=== PATIENT | female | born 1975 | race African-American/Black ===

== ENCOUNTER 2020-01-15 06:06 | Emergency (ER) | payer BC ==
[~2020-01-15] VITALS: Ht 170.2 cm; Wt 99.5 kg
[2020-01-15] MEDS ORDERED: 0.9 % SODIUM CHLORIDE 10 ML DISP.SYRIN. IV PRN (06:15)
--- NOTE | 2020-01-15 06:34 | PHYS DOC ---
General Adult EDM: Chief Complaint: BACK PAIN OR INJURY HPI: HPI: The history was obtained from the patient. Patient is a 44-year-old female with PMH hypertension, sgz-ssribci-qtjwkleoc diabetic who presents with a chief complaint of back pain. Patient states she developed low back pain yesterday evening before she went to sleep. States it involves her entire lower back. States it radiates up into her thoracic region. She states laying still any movement seems to make the pain worse. She has not tried any medicine at home to help. 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 She is unsure whether she pulled something. She denies any nausea or vomiting. She denies any chest pain or shortness of breath. She denies any abdominal pain. She denies any syncope. She does note a history of hypertension but she states she has not taken her morning medication yet. She does note darker urine but denies any dysuria or hematuria. Denies any history of kidney stone. Denies any alcohol or drug abuse. States that she does smoke tobacco. Denies any history of pancreatitis. Does note history of tubal ligation. States that her blood pressures normally well controlled. Patient denies any urinary retention, stool incontinence, saddle anesthesia, history of IV drug use, or history of cancer. Review of Systems: Review of Systems: Constitutional: Denies fever or chills. [] Eyes: Denies change in visual acuity. [] HENT: Denies nasal congestion or sore throat. [] Respiratory: Denies cough or shortness of breath. [] Cardiovascular: Denies chest pain or edema. [] GI: Denies abdominal pain, nausea, vomiting, bloody stools or diarrhea. [] : Denies dysuria. [] Musculoskeletal: Positive for back pain Integument: Denies rash. [] Neurologic: Denies headache, focal weakness or sensory changes. [] Endocrine: Denies polyuria or polydipsia. [] Lymphatic: Denies swollen glands. [] Psychiatric: Denies depression or anxiety. [] Heart Score: Risk Factors: Risk Factors: DM, Current or recent (<one month) smoker, HTN, HLP, family history of CAD, obesity. Risk Scores: Score 0 - 3: 2.5% MACE over next 6 weeks - Discharge Home Score 4 - 6: 20.3% MACE over next 6 weeks - Admit for Clinical Observation Score 7 - 10: 72.7% MACE over next 6 weeks - Early Invasive Strategies Current Medications: Current Medications Medications (Trade) Dose Ordered Sig/[facility] Start Time Stop Time Status Last Admin Dose Admin Cyclobenzaprine HCl (Flexeril) 10 mg 1X ONCE 01/15/20 06:30 01/15/20 06:31 UNV Lidocaine (Lidoderm) 1 patch DAILY 01/15/20 09:00 UNV Sodium Chloride (Normal Saline Flush) 10 ml QSHIFT PRN 01/15/20 06:15 UNV Allergies: Allergies: Allergies Coded Allergies Type Severity Reaction Last Updated Verified No Known Drug Allergies 01/15/20 No Physical Exam: PE: Constitutional: Well developed, well nourished, no acute distress, non-toxic appearance. [] HENT: Normocephalic, atraumatic, bilateral external ears normal, oropharynx moist, no oral exudates, nose normal. [] Eyes: PERRLA, EOMI, conjunctiva normal, no discharge. [] Neck: Normal range of motion, no tenderness, supple, no stridor. [] Cardiovascular:Heart rate regular rhythm, no murmur [] Lungs & Thorax: Bilateral breath sounds clear to auscultation [] Abdomen: Bowel sounds normal, soft, no tenderness, no masses, no pulsatile masses. [] Skin: Warm, dry, no erythema, no rash. [] Back: No tenderness, no CVA tenderness. [] Extremities: No tenderness, no cyanosis, no clubbing, ROM intact, no edema. [] Neurologic: Alert and oriented X 3, normal motor function, normal sensory function, no focal deficits noted. [] Psychologic: Affect normal, judgement normal, mood normal. [] Current Patient Data: Labs: Laboratory Tests Test 01/15/20 06:13 01/15/20 06:20 01/15/20 06:35 Urine Collection Type U bag Urine Color Yellow Urine Clarity Clear Urine pH 6.5 Urine Specific [place] 1.025 Urine Protein Negative mg/dL Urine Glucose (UA) >=1000 mg/dL Urine Ketones (Stick) Negative mg/dL Urine Blood Negative Urine Nitrite Negative Urine Bilirubin Negative Urine Urobilinogen Dipstick 1.0 mg/dL Urine Leukocyte Esterase Moderate Urine RBC 3-5 /HPF Urine WBC 11-20 /HPF Urine Squamous Epithelial Cells Many /LPF Urine Bacteria Many /HPF Urine Mucus Mod /LPF Bedside Urine HCG, Qualitative Hcg negative White Blood Count 6.8 x10^3/uL Red Blood Count 4.46 x10^6/uL Hemoglobin 12.4 g/dL Hematocrit 37.6 % Mean Corpuscular Volume 84 fL Mean Corpuscular Hemoglobin 28 pg Mean Corpuscular Hemoglobin Concent 33 g/dL Red Cell Distribution Width 14.2 % Platelet Count 274 x10^3/uL Neutrophils (%) (Auto) 50 % Lymphocytes (%) (Auto) 40 % Monocytes (%) (Auto) 9 % Eosinophils (%) (Auto) 1 % Basophils (%) (Auto) 1 % Neutrophils # (Auto) 3.4 x10^3/uL Lymphocytes # (Auto) 2.7 x10^3/uL Monocytes # (Auto) 0.6 x10^3/uL Eosinophils # (Auto) 0.1 x10^3/uL Basophils # (Auto) 0.0 x10^3/uL Sodium Level 135 mmol/L Potassium Level 3.7 mmol/L Chloride Level 101 mmol/L Carbon Dioxide Level 26 mmol/L Anion Gap 8 Blood Urea Nitrogen 6 mg/dL Creatinine 0.7 mg/dL Estimated GFR (Cockcroft-Gault) 90.1 BUN/Creatinine Ratio 9 Glucose Level 261 mg/dL Calcium Level 9.0 mg/dL Total Bilirubin 0.2 mg/dL Aspartate Amino Transf (AST/SGOT) 13 U/L Alanine Aminotransferase (ALT/SGPT) 22 U/L Alkaline Phosphatase 89 U/L Total Protein 7.2 g/dL Albumin 3.1 g/dL Albumin/Globulin Ratio 0.8 Lipase 162 U/L Current Medications Medications (Trade) Dose Ordered Sig/[facility] Route PRN Reason Start Time Stop Time Status Last Admin Dose Admin Sodium Chloride 1,000 ml @ 100 mls/hr Q10H IV 01/15/20 07:00 01/15/20 16:59 01/15/20 06:43 Sodium Chloride (Normal Saline Flush) 10 ml QSHIFT PRN IV AFTER MEDS AND BLOOD DRAWS 01/15/20 06:15 Lidocaine (Lidoderm) 1 patch DAILY TD 01/15/20 07:00 01/15/20 06:44 Cyclobenzaprine HCl (Flexeril) 10 mg 1X ONCE PO 01/15/20 07:00 01/15/20 07:01 DC 01/15/20 06:44 Morphine Sulfate (Morphine Sulfate) 4 mg 1X ONCE IV 01/15/20 07:00 01/15/20 07:01 DC 01/15/20 06:44 Cefazolin Sodium (Ancef) 1 gm 1X ONCE IVP 01/15/20 07:30 01/15/20 07:31 DC Laboratory Tests Test 01/15/20 06:20 POC Urine HCG, Qualitative Hcg negative (Negative) Vital Signs: Vital Signs Date Time Temp Pulse Resp B/P (MAP) Pulse Ox O2 Delivery O2 Flow Rate FiO2 01/15/20 06:44 18 99 Room Air 01/15/20 06:16 98.3 88 16 194/88 (123) 98 Room Air 98.3 EKG: EKG: [] Radiology/Procedures: Radiology/Procedures: [] Course & Med Decision Making: Course & Med Decision Making Pertinent Labs and Imaging studies reviewed. (See chart for details) Patient is a well-appearing 44-year-old female who presents with chief complaint of lower back pain with some darker colored urine. Initial vital signs notable for elevated blood pressure. She does have a history of hypertension and has not taken her medicine this morning. Physical exam noted above. Labs are concerning for urinary tract infection versus pyelonephritis. She was given 1 g of Ancef. Her pain was treated. On repeat examination her blood pressure has improved and her symptoms have resolved. I do feel is reasonable to defer CAT s can imaging. Overall very low suspicion for aortic dissection. No back pain red flags present. I did discuss possibility of obtaining CAT scan imaging today. Patient is comfortable deferring this imaging at this time. I do feel overall this is reasonable. She will be discharged home on oral Keflex. Return precautions discussed and understood. Patient stable for discharge home. Dragon Disclaimer: Gwen Disclaimer: This electronic medical record was generated, in whole or in part, using a voice recognition dictation system. Departure Departure Disposition: 01 HOME, SELF-CARE Condition: GOOD Patient Instructions: Pyelonephritis, Adult Additional Instructions: Please return the emergency department in 2 to 3 days if your symptoms do not improve or worsen. Scripts Cephalexin (KEFLEX) 500 Mg Capsule 1 CAP PO BID for 14 Days, #28 CAP 0 Refills Prov: SARAH ORTIZ DO 01/15/20 Justicifation of Admission Dx: Justifications for Admission: Justification of Admission Dx: N/A SARAH ORTIZ DO Jan 15, 2020 06:34
[2020-01-15] MEDS ORDERED: LIDOCAINE (700MG/PATCH) PATCH. TD SCH (07:00)
[2020-01-15] MEDS ORDERED: IV NORMAL SALINE 1000ML BAG 1,000 ML IV SCH (07:00)
[2020-01-15] MEDS ORDERED: CYCLOBENZAPRINE 10 MG TABLET. PO ONE (07:00)
[2020-01-15] MEDS ORDERED: MORPHINE SULFATE 4 MG/ML VIAL. IV ONE (07:00)
[2020-01-15 07:06] LABS: BACTERIA,URINE MANY /HPF (0-FEW); BILIRUBIN,URINE NEGATIVE (NEG); CLARITY,URINE CLEAR; COLOR,URINE YELLOW; NITRITE,URINE NEGATIVE (NEG); PH,URINE 6.5 (<5.0-8.0); PROTEIN,URINE NEGATIVE (NEG-TRACE); SQUAMOUS EPITHELIAL CELL,UR MANY /LPF
[2020-01-15 07:13] LABS: CREATININE 0.7 mg/dL (0.6-1.0); GFR 90.1; POTASSIUM 3.7 mmol/L (3.5-5.1)
[2020-01-15 07:19] LABS: ALBUMIN 3.1 g/dL (3.4-5.0); ALBUMIN/GLOBULIN RATIO 0.8 (1.0-1.7); TOTAL BILIRUBIN 0.2 mg/dL (0.2-1.0); TOTAL PROTEIN 7.2 g/dL (6.4-8.2)
[2020-01-15] MEDS ORDERED: ceFAZolin SODIUM IV Push 1 GM VIAL. IVP ONE (07:30)
[2020-01-15 07:39] LABS: BASO % 1 % (0-3); EOS # 0.1 x10^3/uL (0.0-0.7); EOS % 1 % (0-3); HEMATOCRIT 37.6 % (36.0-47.0); HEMOGLOBIN 12.4 g/dL (12.0-15.5); LYMPH # 2.7 x10^3/uL (1.0-4.8); LYMPH % 40 % (24-48); MEAN CORPUSCULAR HEMOGLOBIN 28 pg (25-35); MEAN CORPUSCULAR HGB CONC 33 g/dL (31-37); MEAN CORPUSCULAR VOLUME 84 fL (79-100); MONO # 0.6 x10^3/uL (0.0-1.1); MONO % 9 % (0-9); NEUT # 3.4 x10^3/uL (1.8-7.7); NEUT % 50 % (31-73); PLATELET COUNT 274 x10^3/uL (140-400); RED BLOOD COUNT 4.46 x10^6/uL (3.50-5.40); RED CELL DISTRIBUTION WIDTH 14.2 % (11.5-14.5); WHITE BLOOD COUNT 6.8 x10^3/uL (4.0-11.0)
[2020-01-15] MEDS ORDERED: CEPH-264 PO (08:08)
[2020-01-15 08:22] VITALS: BP 170/79
== END 2020-01-15 08:51 | disposition home or self-care (01) ==
LOC: ER 06:06
DX: M54.5 Low back pain (principal); I10 Essential (primary) hypertension; E11.9 Type 2 diabetes mellitus without complications
CPT/HCPCS: 36415; 80053; 81001; 81025; 83690; 85025; 87086; 96361; 96374; 96375; 99285; J0690; J2270; J7030

== ENCOUNTER 2020-02-27 00:45 | Emergency (ER) | payer BC ==
[~2020-02-27] VITALS: Ht 170.2 cm; Wt 100.0 kg
[~2020-02-27 00:45] MED LIST: CEPH-264 PO
[2020-02-27] MEDS ORDERED: HYDR-3164 PO (02:05)
--- NOTE | 2020-02-27 02:06 | PHYS DOC ---
Past Medical History Past Medical History: Diabetes-Type II, Hypertension Past Surgical History: Tubal ligation Smoking Status: Current Every Day Smoker Alcohol Use: None General Adult EDM: Chief Complaint: UPPER EXTREMITY PAIN HPI: HPI: 44-year-old female with history of hypertension, diabetes mellitus, who presents for evaluation of proximal left upper extremity pain at site of recent lipoma removal at [facility] by Dr. Kohler of [facility]. The pain is just distal to the surgical incision around the antecubital fossa. No swelling, fever, chills, nausea or vomiting. No distal upper extremity weakness or paresthesia. No fall or trauma. Review of Systems: Review of Systems: Gen: No fever, chills. CV: No CP, palpitations. Resp. No SOB, cough. GI: No abd pain, N/V. Neuro: No HOLCOMB, dizziness, weakness or paresthesia. MSK: Reports proximal left upper extremity pain. Skin: Reports surgical scar from recent lipoma excision. Heart Score: Risk Factors: Risk Factors: DM, Current or recent (<one month) smoker, HTN, HLP, family history of CAD, obesity. Risk Scores: Score 0 - 3: 2.5% MACE over next 6 weeks - Discharge Home Score 4 - 6: 20.3% MACE over next 6 weeks - Admit for Clinical Observation Score 7 - 10: 72.7% MACE over next 6 weeks - Early Invasive Strategies Allergies: Allergies: Allergies Coded Allergies Type Severity Reaction Last Updated Verified Penicillins Allergy Unknown Rash 01/15/20 Yes Physical Exam: PE: Gen: NAD. Well nourished. Head: NC/AT. Eyes: No scleral icterus. No conjunctival injection. ENT: MMM. Neck: Supple. NT. CV: RRR Peripheral pulses intact. Resp: CTAB. MSK: No peripheral cyanosis. No edema. Approximately 5 cm linear surgical scar at the left upper extremity just proximal to the antecubital fossa, without surrounding cellulitic changes, fluctuance, or induration. Distal left upper extremity is warm and well perfused with otherwise intact active range of motion of the isolated joints. Neuro: Awake and alert. Skin. Warm. Dry. Psych: Appropriate mood & affect. EKG: EKG: [] Radiology/Procedures: Radiology/Procedures: [] Course & Med Decision Making: Course & Med Decision Making Pertinent Labs and Imaging studies reviewed. (See chart for details) In summary, 44-year-old female who presents for evaluation of postoperative pain in the setting of recent lipoma removal of the left upper extremity just proximal to the antecubital fossa. No surrounding infectious changes. Her pain is not necessarily described as neuropathic pain. She remains well-appearing and nontoxic. She will discharged home with outpatient follow-up as scheduled for Tuesday. Return precautions given. Gwen Disclaimer: Gwen Disclaimer: This electronic medical record was generated, in whole or in part, using a voice recognition dictation system. Departure Departure Impression: Primary Impression: Postoperative pain of extremity Disposition: HOME, SELF-CARE Condition: STABLE Referrals: UNKNOWN PCP NAME (PCP) Patient Instructions: Pain Relief Preoperatively and Postoperatively Scripts Hydrocodone/Apap 5-325 (NORCO 5-325 TABLET) 1 Each Tablet 1 TAB PO PRN Q8HRS PRN for PAIN, #10 TAB 0 Refills Prov: JEVON PINEDA DO 02/27/20 Justicifation of Admission Dx: Justifications for Admission: Justification of Admission Dx: N/A JEVON PINEDA DO Feb 27, 2020 02:05
[2020-02-27] MEDS ORDERED: HYDROcodone/APAP 5/325MG 1 TAB TABLET PO ONE (02:30)
[2020-02-27 02:32] VITALS: BP 168/98
== END 2020-02-27 02:36 | disposition home or self-care (01) ==
LOC: ER 00:45
DX: G89.18 Other acute postprocedural pain (principal); M79.602 Pain in left arm; E11.9 Type 2 diabetes mellitus without complications; I10 Essential (primary) hypertension; F17.200 Nicotine dependence, unspecified, uncomplicated; Z98.51 Tubal ligation status; Z88.0 Allergy status to penicillin
CPT/HCPCS: 99283

== ENCOUNTER 2020-08-05 18:24 | Emergency (ER) | payer BC ==
[~2020-08-05] VITALS: Ht 170.2 cm; Wt 102.0 kg
[~2020-08-05 18:24] MED LIST changes: +HYDR-3164 PO
[2020-08-05] MEDS ORDERED: fentaNYL PF VIAL 100 MCG/2 ML VIAL IVP ONE (19:45)
[2020-08-05] MEDS ORDERED: ONDANSETRON PF 4 MG/2 ML VIAL. IVP ONE (19:45)
[2020-08-05] MEDS ORDERED: IV NORMAL SALINE 1000ML BAG 1,000 ML IV SCH (19:45)
--- NOTE | 2020-08-05 19:58 | PHYS DOC ---
Past Medical History Past Medical History: Diabetes-Type II, Hypertension Past Surgical History: Tubal ligation Smoking Status: Current Every Day Smoker Alcohol Use: None General Adult EDM: Chief Complaint: CONTISPATION HPI: HPI: Patient is a 45 year old female who presents with 7 days without a bowel movement. She states she feels very full and very bloated. She states it hurts to walk. She states she has been trying mag citrate, milk of mag, chocolate milk, ice cream, prune juice. She states she is very nauseated now but has not vomited. She has a history of diabetes and hypertension. She rates her discomfort a 9 out of 10. Patient denies chest pain, shortness of breath, fever, vomiting, diarrhea, headache, dizziness, urinary symptoms. Review of Systems: Review of Systems: Constitutional: Denies fever or chills. [] Eyes: Denies change in visual acuity. [] HENT: Denies nasal congestion or sore throat. [] Respiratory: Denies cough or shortness of breath. [] Cardiovascular: Denies chest pain or edema. [] GI: + abdominal pain, +nausea, + constipation, denies vomiting, bloody stools or diarrhea. [] : Denies dysuria. [] Musculoskeletal: Denies back pain or joint pain. [] Integument: Denies rash. [] Neurologic: Denies headache, focal weakness or sensory changes. [] Endocrine: Denies polyuria or polydipsia. [] Lymphatic: Denies swollen glands. [] Psychiatric: Denies depression or anxiety. [] Heart Score: Risk Factors: Risk Factors: DM, Current or recent (<one month) smoker, HTN, HLP, family history of CAD, obesity. Risk Scores: Score 0 - 3: 2.5% MACE over next 6 weeks - Discharge Home Score 4 - 6: 20.3% MACE over next 6 weeks - Admit for Clinical Observation Score 7 - 10: 72.7% MACE over next 6 weeks - Early Invasive Strategies Current Medications: Current Medications Medications (Trade) Dose Ordered Sig/[facility] Start Time Stop Time Status Last Admin Dose Admin Fentanyl Citrate (Fentanyl 2ml Vial) 25 mcg 1X ONCE 08/05/20 19:45 08/05/20 19:46 DC Ondansetron HCl (Zofran) 4 mg 1X ONCE 2/23/21 19:45 08/05/20 19:46 DC Sodium Chloride 1,000 ml @ 1,000 mls/hr Q1H 08/05/20 19:45 08/05/20 20:44 Allergies: Allergies: Allergies Coded Allergies Type Severity Reaction Last Updated Verified Penicillins Allergy Intermediate Rash 02/27/20 Yes Physical Exam: PE: Constitutional: Well developed, well nourished, no acute distress, non-toxic appearance. [] HENT: Normocephalic, atraumatic, bilateral external ears normal, oropharynx moist, no oral exudates, nose normal. [] Eyes: PERRLA, EOMI, conjunctiva normal, no discharge. [] Neck: Normal range of motion, no tenderness, supple, no stridor. [] Cardiovascular:Heart rate regular rhythm, no murmur [] Lungs & Thorax: Bilateral breath sounds clear to auscultation [] Abdomen: Bowel sounds normal, soft, generalized tenderness, distended, no masses, no pulsatile masses. [] Skin: Warm, dry, no erythema, no rash. [] Back: No tenderness, no CVA tenderness. [] Extremities: No tenderness, no cyanosis, no clubbing, ROM intact, no edema. [] Neurologic: Alert and oriented X 3, normal motor function, normal sensory function, no focal deficits noted. [] Psychologic: Affect normal, judgement normal, mood normal. [] Current Patient Data: Vital Signs: Vital Signs Date Time Temp Pulse Resp B/P (MAP) Pulse Ox O2 Delivery O2 Flow Rate FiO2 08/05/20 19:00 97.0 96 26 157/85 (109) 96 Room Air 97.0 EKG: EKG: [] Radiology/Procedures: Radiology/Procedures: [] Impression: [facility] [address] [place], [place] [id number] IMAGING REPORT Signed PATIENT: AVEL GOMEZ ACCOUNT: [id number] : 1975 LOCATION: ER AGE: 45 SEX: F EXAM STATUS: REG ER ORD. PHYSICIAN: KASEY NATION APRN REASON: abd pain, nausea, constipation x 7 days PROCEDURE: CT ABD PELV W/ IV CONTRST ONLY Exam: CT of abdomen and pelvis with contrast INDICATION: Abdominal pain, nausea, constipation TECHNIQUE: Sequential axial images through the abdomen and pelvis obtained without IV contrast. Sagittal and coronal reformatted images were reconstructed from the axial data and reviewed. Comparisons: None FINDINGS: Heart size is normal. No pericardial effusion. Strandy opacities at the dependent portion lungs likely representing atelectasis.. Liver, spleen, pancreas, gallbladder and adrenals are unremarkable. No perinephric inflammation or hydronephrosis. No renal or ureteral calculi are identified. Bladder is distended and not well evaluated. Uterus not enlarged. No abnormal adnexal mass. Large amount of stool is noted in the distal sigmoid colon. Remainder of the colon is predominantly fluid-filled. Small bowel is unremarkable. Abdominal aorta has a normal course and caliber. Abdominal vasculature is patent. No enlarged abdominal lymph nodes are identified. No suspicious osseous lesions or acute fractures. IMPRESSION: Moderate amount stool noted at the rectum/sigmoid colon, correlate for constipation. More proximal colon is predominantly fluid-filled Exposure: One or more of the following in the visualized dose reduction techn iques were utilized for this examination: 1. Automated exposure control 2. Adjustment of the MA and/or KV according to patient size 3. Use of iterative of reconstructive technique Electronically signed by: Larisa Gold MD (08/05/2020 10:22 PM) [facility] DICTATED and SIGNED BY: LARISA GOLD MD DATE: 08/05/20 [id number] 0 Course & Med Decision Making: Course & Med Decision Making Pertinent Labs and Imaging studies reviewed. (See chart for details) See HPI. Alert and oriented x4. Ambulatory with steady gait. Abdomen is distended but soft and tender generalized. Speaks in full clear sentences. Skin pink warm and dry. CT abdomen pelvis shows constipation. Upon going back and speaking with the patient, patient has been having many bowel movements here in the ED. She states that she had hard stool come out and now hold onto loose stool. Patient states she is feeling better. Patient will be discharged home and follow-up with her primary care provider. [] Gwen Disclaimer: Gwen Disclaimer: This electronic medical record was generated, in whole or in part, using a voice recognition dictation system. Departure Departure Impression: Primary Impression: Constipation Qualified Codes: K59.00 - Constipation, unspecified Disposition: 01 DC HOME SELF CARE/HOMELESS Condition: STABLE Referrals: UNKNOWN PCP NAME (PCP) Patient Instructions: Constipation, Adult Additional Instructions: Drink plenty of fluids. Try to eat a high-fiber diet. Follow-up with your primary care if needed. If you ever get so constipated that you begin to vomit you return to the emergency room. KASEY NATION APRN Aug 05, 2020 19:58
[2020-08-05 20:04] LABS: BASO % 0 % (0-3); EOS % 0 % (0-3); HEMATOCRIT 42.9 % (36.0-47.0); HEMOGLOBIN 14.4 g/dL (12.0-15.5); LYMPH # 1.4 x10^3/uL (1.0-4.8); LYMPH % 21 % (24-48); MEAN CORPUSCULAR HEMOGLOBIN 29 pg (25-35); MEAN CORPUSCULAR HGB CONC 34 g/dL (31-37); MEAN CORPUSCULAR VOLUME 85 fL (79-100); MONO # 0.5 x10^3/uL (0.0-1.1); MONO % 8 % (0-9); NEUT # 4.7 x10^3/uL (1.8-7.7); NEUT % 71 % (31-73); PLATELET COUNT 246 x10^3/uL (140-400); RED BLOOD COUNT 5.05 x10^6/uL (3.50-5.40); RED CELL DISTRIBUTION WIDTH 13.8 % (11.5-14.5); WHITE BLOOD COUNT 6.6 x10^3/uL (4.0-11.0)
[2020-08-05] MEDS ORDERED: IOHEXOL 300 MG/ML 100ML VIAL. IV ONE (20:15)
[2020-08-05] MEDS ORDERED: CONTRAST GIVEN. MC PRN (20:30)
[2020-08-05 21:37] LABS: CALCIUM 8.3 mg/dL (8.5-10.1); CREATININE 0.8 mg/dL (0.6-1.0); POTASSIUM 3.7 mmol/L (3.5-5.1)
[2020-08-05 21:43] LABS: ALBUMIN 3.3 g/dL (3.4-5.0); ALBUMIN/GLOBULIN RATIO 0.8 (1.0-1.7); TOTAL BILIRUBIN 0.5 mg/dL (0.2-1.0); TOTAL PROTEIN 7.5 g/dL (6.4-8.2)
[2020-08-05 21:52] LABS: BILIRUBIN,URINE NEGATIVE (NEG); CLARITY,URINE CLEAR; COLOR,URINE YELLOW; NITRITE,URINE NEGATIVE (NEG); PH,URINE 8.5 (<5.0-8.0); PROTEIN,URINE 100 mg/dL (NEG-TRACE); UROBILINOGEN,URINE 0.2 mg/dL (0.2 mg/dL)
[2020-08-05 22:03] LABS: BACTERIA,URINE MANY /HPF (0-FEW)
--- NOTE | 2020-08-05 22:25 | RAD ---
Exam: CT of abdomen and pelvis with contrast INDICATION: Abdominal pain, nausea, constipation TECHNIQUE: Sequential axial images through the abdomen and pelvis obtained without IV contrast. Sagit john and coronal reformatted images were reconstructed from the axial data and reviewed. Comparisons: None FINDINGS: Heart size is normal. No pericardial effusion. Strandy opacities at the dependent portion lungs likel y representing atelectasis.. Liver, spleen, pancreas, gallbladder and adrenals are unremarkable. No perinephric inflammation or hydronephrosis. No renal or ureteral calculi are identified. Bladder is distended and not well evaluated. Uterus not enlarged. No abnormal adnexal mass. Large amount of stool is noted in the distal sigmoid colon. Remainder of the colon is predominantly f luid-filled. Small bowel is unremarkable. Abdominal aorta has a normal course and caliber. Abdominal vasculature is patent. No enlarged abdominal lymph nodes are identified. No suspicious osseous lesions or acute fractures. IMPRESSION: Moderate amount stool noted at the rectum/sigmoid colon, correlate for constipation. More proximal co puneet is predominantly fluid-filled Exposure: One or more of the following in the visualized dose reduction techniques were utilized for this examination: 1. Automated exposure control 2. Adjustment of the MA and/or KV according to patient size 3. Use of iterative of reconstructive technique Electronically signed by: Larisa Carbajal MD (08/05/2020 10:22 PM) [facility]
[2020-08-05] MEDS ORDERED: DOCUSATE SODIUM 283 MG/5 ML ENEMA. PR ONE (22:30)
[2020-08-05 23:00] VITALS: BP 162/94
== END 2020-08-05 23:25 | disposition home or self-care (01) ==
LOC: ER 18:24
DX: K59.00 Constipation, unspecified (principal); R14.0 Abdominal distension (gaseous); R11.0 Nausea; E11.9 Type 2 diabetes mellitus without complications; I10 Essential (primary) hypertension; F17.200 Nicotine dependence, unspecified, uncomplicated; Z98.51 Tubal ligation status; Z88.0 Allergy status to penicillin
CPT/HCPCS: 36415; 74177; 80053; 81001; 82010; 83690; 85025; 87086; 96361; 96374; 96375; 99285; J2405; J3010; J7030; Q9967

== ENCOUNTER 2020-08-11 11:49 | Emergency (ER) | payer SELFPAY ==
[~2020-08-11] VITALS: Ht 170.2 cm; Wt 100.0 kg
[2020-08-11 12:45] VITALS: BP 166/86
[2020-08-11] MEDS ORDERED: methylPREDNISolone SOD SUCC PF 125 MG/2 ML VIAL. IM ONE (13:00)
[2020-08-11] MEDS ORDERED: hydrOXYzine 25 MG TABLET PO ONE (13:00)
[2020-08-11] MEDS ORDERED: FAMOTIDINE 20 MG TABLET. PO ONE (13:00)
--- NOTE | 2020-08-11 13:04 | PHYS DOC ---
Past Medical History Past Medical History: Diabetes-Type II, Hypertension Past Surgical History: Tubal ligation Smoking Status: Current Every Day Smoker Alcohol Use: None General Adult EDM: Chief Complaint: ALLERGIC REACTION HPI: HPI: Patient is a 45 year old female with a history of hypertension, diabetes type 2, who presents to the ED today complaining of a pruritic rash that began yesterday after washing her bed sheets with a new bleach and sleeping on the sheets. She states she took a Benadryl this morning with no relief. Denies any difficulty breathing, swallowing, throat or tongue swelling. Review of Systems: Review of Systems: Constitutional: Denies fever or chills. [] Eyes: Denies change in visual acuity. [] HENT: Denies nasal congestion or sore throat. [] Respiratory: Denies cough or shortness of breath. [] Cardiovascular: Denies chest pain or edema. [] GI: Denies abdominal pain, nausea, vomiting, bloody stools or diarrhea. [] : Denies dysuria. [] Musculoskeletal: Denies back pain or joint pain. [] Integument: Reports a pruritic rash Neurologic: Denies headache, focal weakness or sensory changes. [] Psychiatric: Denies depression or anxiety. [] Heart Score: Risk Factors: Risk Factors: DM, Current or recent (<one month) smoker, HTN, HLP, family history of CAD, obesity. Risk Scores: Score 0 - 3: 2.5% MACE over next 6 weeks - Discharge Home Score 4 - 6: 20.3% MACE over next 6 weeks - Admit for Clinical Observation Score 7 - 10: 72.7% MACE over next 6 weeks - Early Invasive Strategies Current Medications: Current Medications Medications (Trade) Dose Ordered Sig/Edita Start Time Stop Time Status Last Admin Dose Admin Famotidine (Pepcid) 20 mg 1X ONCE 08/11/20 13:00 08/11/20 13:01 DC Hydroxyzine HCl (Atarax) 25 mg 1X ONCE 08/11/20 13:00 08/11/20 13:01 DC Methylprednisolone Sodium Succinate (SOLU-Medrol 125MG VIAL) 125 mg 1X ONCE 08/11/20 13:00 08/11/20 13:01 DC Allergies: Allergies: Allergies Coded Allergies Type Severity Reaction Last Updated Verified Penicillins Allergy Intermediate Rash 02/27/20 Yes Physical Exam: PE: Constitutional: Well developed, well nourished, no acute distress, non-toxic appearance. [] HENT: Normocephalic, atraumatic, bilateral external ears normal, oropharynx moist, no oral exudates, nose normal. Airways open, no throat or tongue swelling Eyes: PERRLA, EOMI, conjunctiva normal, no discharge. [] Neck: Normal range of motion, no tenderness, supple, no stridor. [] Cardiovascular:Heart rate regular rhythm, no murmur [] Lungs & Thorax: Bilateral breath sounds clear to auscultation [] Abdomen: Bowel sounds normal, soft, no tenderness, no masses, no pulsatile masses. [] Skin: Warm, dry, moderate amount of erythematous papular rash on patient's face, upper torso. Back: No tenderness, no CVA tenderness. [] Extremities: No tenderness, no cyanosis, no clubbing, ROM intact, no edema. [] Neurologic: Alert and oriented X 3, normal motor function, normal sensory function, no focal deficits noted. [] Psychologic: Affect normal, judgement normal, mood normal. [] Current Patient Data: Vital Signs: Vital Signs Date Time Temp Pulse Resp B/P (MAP) Pulse Ox O2 Delivery O2 Flow Rate FiO2 08/11/20 12:45 98.4 93 16 166/86 (112) 99 98.4 EKG: EKG: [] Radiology/Procedures: Radiology/Procedures: [] Course & Med Decision Making: Course & Med Decision Making Pertinent Labs and Imaging studies reviewed. (See chart for details) This is a 45-year-old female patient presenting to the ED today with contact dermatitis from using new bleach to wash her white sheets and sleeping on the sheets. Patient has no anaphylactic reaction symptoms. She was given Solu- Medrol, hydroxyzine and Pepcid in the ED. She took prednisone at home. Discharged with prednisone Pepcid and hydroxyzine. Follow-up with her PCP. Discussed the need not to use this new bleach. Discussed the need to wash all her sheets with her old laundry detergent. Gwen Disclaimer: Gwen Disclaimer: This electronic medical record was generated, in whole or in part, using a voice recognition dictation system. Departure Departure Impression: Primary Impression: Contact dermatitis due to soap Disposition: 01 DC HOME SELF CARE/HOMELESS Condition: STABLE Referrals: NO PCP (PCP) KAMI GATES MD follow up in 1-2 weeks Patient Instructions: Contact Dermatitis, Jgan-of-Ynug Additional Instructions: You were evaluated in the emergency room for rash from using bleach. Please do not use this bleach anymore. Please wash all the clothes/sheets you used this bleach with, with your previous laundry detergent. Please take the prescribed medications as ordered, come back to the ED at any point symptoms worsen. Scripts Hydroxyzine Hcl (HYDROXYZINE HCL) 25 Mg Tablet 1 TAB PO TID, #90 TAB Prov: TRUNG FRASER APRN 08/11/20 Famotidine (FAMOTIDINE) 20 Mg Tablet 20 MG PO DAILY, #7 TAB Prov: TRUNG FRASER APRN 08/11/20 Prednisone (PREDNISONE) 50 Mg Tablet 1 TAB PO DAILY, #5 TAB Prov: TRUNG FRASER APRN 08/11/20 TRUNG FRASER APRN Aug 11, 2020 13:04
[2020-08-11] MEDS ORDERED: FAMO20TA5 PO (13:10)
[2020-08-11] MEDS ORDERED: HYDR25TA PO (13:10)
[2020-08-11] MEDS ORDERED: PRED50TA PO (13:10)
[2020-08-12] MEDS ORDERED: PRED20TA PO ×2 (04:25→04:32)
== END 2020-08-11 13:18 | disposition home or self-care (01) ==
LOC: ER 11:49
DX: L23.2 Allergic contact dermatitis due to cosmetics (principal); I10 Essential (primary) hypertension; E11.9 Type 2 diabetes mellitus without complications; F17.200 Nicotine dependence, unspecified, uncomplicated; Z98.51 Tubal ligation status; Z88.0 Allergy status to penicillin
CPT/HCPCS: 96372; 99283; J2930

== ENCOUNTER 2020-08-12 03:59 | Emergency (ER) | payer SELFPAY ==
[~2020-08-12] VITALS: Ht 170.2 cm; Wt 101.6 kg
[~2020-08-12 03:59] MED LIST changes: +FAMO20TA5 PO; +HYDR25TA PO; +PRED50TA PO
[2020-08-12 04:05] VITALS: BP 176/104
[2020-08-12] MEDS ORDERED: PRED20TA PO ×2 (04:25→04:32)
--- NOTE | 2020-08-12 04:25 | PHYS DOC ---
Past Medical History Past Medical History: Diabetes-Type II, Hypertension Past Surgical History: Tubal ligation Smoking Status: Current Every Day Smoker Additional Information: 0.25ppd Alcohol Use: None General Adult EDM: Chief Complaint: SKIN RASH/ABSCESS HPI: HPI: Patient is a 45 year old female presents for reevaluation of rash. Patient was seen yesterday for a rash that she believes is due to laundry detergent bleach. She feels that she did not dilute the bleach and it was too concentrated. Patient has itching along her face and upper torso. Patient was seen yesterday prescribed Atarax Pepcid and steroids. Patient states she has been taking medicines as prescribed and she has had no relief. Patient also states she is use [id number] hydrocortisone with no relief. Patient is requesting Benadryl shot. Review of Systems: Review of Systems: Constitutional: Denies fever or chills. [] Eyes: Denies change in visual acuity. [] HENT: Denies nasal congestion or sore throat. [] Respiratory: Denies cough or shortness of breath. [] Cardiovascular: Denies chest pain or edema. [] GI: Denies abdominal pain, nausea, vomiting, bloody stools or diarrhea. [] : Denies dysuria. [] Musculoskeletal: Denies back pain or joint pain. [] Integument: Positive rash positive itch Neurologic: Denies headache, focal weakness or sensory changes. [] Endocrine: Denies polyuria or polydipsia. [] Lymphatic: Denies swollen glands. [] Psychiatric: Denies depression or anxiety. [] Heart Score: Risk Factors: Risk Factors: DM, Current or recent (<one month) smoker, HTN, HLP, family history of CAD, obesity. Risk Scores: Score 0 - 3: 2.5% MACE over next 6 weeks - Discharge Home Score 4 - 6: 20.3% MACE over next 6 weeks - Admit for Clinical Observation Score 7 - 10: 72.7% MACE over next 6 weeks - Early Invasive Strategies Allergies: Allergies: Allergies Coded Allergies Type Severity Reaction Last Updated Verified Penicillins Allergy Intermediate Rash 02/27/20 Yes Physical Exam: PE: Constitutional: Well developed, well nourished, no acute distress, non-toxic appearance. [] HENT: Normocephalic, atraumatic, bilateral external ears normal, oropharynx moist, no oral exudates, nose normal. [] Eyes: PERRLA, EOMI, conjunctiva normal, no discharge. [] Neck: Normal range of motion, no tenderness, supple, no stridor. [] Cardiovascular:Heart rate regular rhythm, no murmur [] Lungs & Thorax: Bilateral breath sounds clear to auscultation [] Abdomen: Bowel sounds normal, soft, no tenderness, no masses, no pulsatile masses. [] Skin: Warm, dry, no erythema, no rash. [Rash upper torso back facial] Back: No tenderness, no CVA tenderness. [] Extremities: No tenderness, no cyanosis, no clubbing, ROM intact, no edema. [] Neurologic: Alert and oriented X 3, normal motor function, normal sensory function, no focal deficits noted. [] Psychologic: Affect normal, judgement normal, mood normal. [] Current Patient Data: Vital Signs: Vital Signs Date Time Temp Pulse Resp B/P (MAP) Pulse Ox O2 Delivery O2 Flow Rate FiO2 08/12/20 04:05 98.3 119 20 176/104 (128) 98 Room Air 98.3 EKG: EKG: [] Radiology/Procedures: Radiology/Procedures: [] Course & Med Decision Making: Course & Med Decision Making Pertinent Labs and Imaging studies reviewed. (See chart for details) [] Dragon Disclaimer: Dragon Disclaimer: This electronic medical record was generated, in whole or in part, using a voice recognition dictation system. Departure Departure Impression: Primary Impression: Allergic reaction Additional Impression: Rash Disposition: 01 DC HOME SELF CARE/HOMELESS Condition: STABLE Referrals: NO PCP (PCP) Patient Instructions: Contact Dermatitis Scripts Prednisone (PREDNISONE) 20 Mg Tablet 1 TAB PO UD for 12 Days, #15 TAB Take 2 tabs days 1,2,3 1.5 tabs days 3,4,5 1 tab days 6,7,8 0.5 tab days 9,10,11 Prov: SHY DURAN DO 08/12/20 Prednisone (PREDNISONE) 20 Mg Tablet 1 TAB PO UD for 12 Days, #15 TAB Take 2 tabs days 1,2,3 1.5 tabs days 3,4,5 1 tab days 6,7,8 0.5 tab days 9,10,11 Prov: SHY DURAN DO 08/12/20 SHY DURAN DO Aug 12, 2020 04:25
[2020-08-12] MEDS ORDERED: FAMOTIDINE 20 MG TABLET. PO ONE (05:00)
[2020-08-12] MEDS ORDERED: diphenhydrAMINE 50 MG/ML VIAL IM ONE (05:00)
== END 2020-08-12 04:38 | disposition home or self-care (01) ==
LOC: ER 03:59
DX: R21 Rash and other nonspecific skin eruption (principal); T50.995A Adverse effect of other drugs, medicaments and biological substances, initial encounter; L29.9 Pruritus, unspecified; E11.9 Type 2 diabetes mellitus without complications; I10 Essential (primary) hypertension; F17.200 Nicotine dependence, unspecified, uncomplicated; Z98.51 Tubal ligation status; Z88.0 Allergy status to penicillin; Y92.89 Other specified places as the place of occurrence of the external cause
CPT/HCPCS: 96372; 99283; J1200

== ENCOUNTER 2020-08-13 22:17 | Emergency (ER) | payer SELFPAY ==
[~2020-08-13] VITALS: Ht 167.6 cm; Wt 100.0 kg
[~2020-08-13 22:17] MED LIST changes: +PRED20TA PO
--- NOTE | 2020-08-13 22:27 | PHYS DOC ---
Past Medical History Past Medical History: Diabetes-Type II, Hypertension Past Surgical History: Tubal ligation Smoking Status: Current Every Day Smoker Alcohol Use: None General Adult EDM: Chief Complaint: ITCHING HPI: HPI: Patient is a 45 year old female who presents with rash. Patient states she has had a rash with intense pruritus for the last 4 days. She says she was seen in this ED yesterday and was given a Benadryl shot and steroid taper which she is still on and says has not provided relief. She says she is in a large amount of discomfort and pain, and last took [id number] Benadryl prescription at 1600 but did not help. She says the rash covers the majority of her trunk. She thinks it may have stemmed from taking a mirtazapine pill which she received from her friend on Tuesday. Review of Systems: Review of Systems: Constitutional: Denies fever or chills Eyes: Denies redness or eye pain HENT: Denies nasal congestion or sore throat Respiratory: Denies cough or shortness of breath Cardiovascular: Denies chest pain or palpitations GI: Denies abdominal pain, nausea, or vomiting : Denies dysuria or hematuria Musculoskeletal: Denies back pain or joint pain Integument: Notes rash and pruritus diffusely across abdomen and back Neurologic: Denies headache, focal weakness or sensory changes Complete systems were reviewed and found to be within normal limits, except as documented in this note. Allergies: Allergies: Allergies Coded Allergies Type Severity Reaction Last Updated Verified Penicillins Allergy Intermediate Rash 02/27/20 Yes Physical Exam: PE: Constitutional: Well developed, well nourished, no acute distress, non-toxic appearance HENT: Normocephalic, atraumatic Eyes: PERRL, EOMI, conjunctiva normal, no discharge Neck: Normal range of motion, no tenderness, supple Lungs & Thorax: No respiratory distress, equal chest rise and fall Abdomen: Soft, no tenderness Skin: Warm, dry, no erythema, no rash. Dry skin noted on thorax worse on the ba ck Back: No tenderness, no CVA tenderness Extremities: No tenderness, ROM intact, no edema Neurologic: Alert and oriented X 3, normal motor function, normal sensory function, no focal deficits noted Psychologic: Affect normal, judgment normal EKG: EKG: [] Radiology/Procedures: Radiology/Procedures: [] Course & Med Decision Making: Course & Med Decision Making Patient is a 45-year-old female who presents with rash and pruritus. The patient is on a steroid taper which was given to her yesterday when she visited the same ED with the same complaint. She says the steroids and Benadryl have not been providing any relief thus far. Upon exam no rash or other skin ab normalities were noted save for dry skin. The patient was given a Benadryl shot, and told to continue the taper and to follow-up with a knife cutter. Patient stable for discharge with outpatient follow-up with PCP. Discussed findings and plan with patient, who acknowledges understanding and agreement. Dragon Disclaimer: Dragon Disclaimer: This electronic medical record was generated, in whole or in part, using a voice recognition dictation system. Departure Departure Impression: Primary Impression: Pruritic rash Disposition: 01 DC HOME SELF CARE/HOMELESS Condition: STABLE Referrals: NO PCP (PCP) KAMI GATES MD Patient Instructions: Pruritus, Rash, [id number] Additional Instructions: Please continue previously prescribed medications as directed. It may be of benefit to apply gentle skin moisturizer Eucerin (over the counter product). Call and make an appointment to see dermatology for further evaluation and poornima burton. MARYBETH MORENO DO Aug 13, 2020 22:27
[2020-08-13 22:30] VITALS: BP 164/82
[2020-08-13] MEDS ORDERED: diphenhydrAMINE 50 MG/ML VIAL IM ONE (22:45)
== END 2020-08-13 22:54 | disposition home or self-care (01) ==
LOC: ER 22:17
DX: R21 Rash and other nonspecific skin eruption (principal); L29.9 Pruritus, unspecified; E11.9 Type 2 diabetes mellitus without complications; I10 Essential (primary) hypertension; F17.200 Nicotine dependence, unspecified, uncomplicated; Z98.51 Tubal ligation status; Z88.0 Allergy status to penicillin
CPT/HCPCS: 96372; 99283; J1200

== ENCOUNTER 2020-11-06 21:25 | Emergency (ER) | payer BC ==
[~2020-11-06] VITALS: Ht 170.2 cm; Wt 96.4 kg
[2020-11-06 22:01] VITALS: BP 157/93
[2020-11-06] MEDS: CYCLOBENZAPRINE 10 MG TABLET. PO ONE (22:04)
[2020-11-06] MEDS: HYDROcodone/APAP 5/325MG 1 TAB TABLET PO ONE (22:04)
[2020-11-06] MEDS: NAPROXEN 500 MG TABLET PO STA (22:05)
[2020-11-06] MEDS ORDERED: HYDR12.58 PO (23:27)
[2020-11-06] MEDS ORDERED: DICL50TA2 PO (23:27)
[2020-11-06] MEDS ORDERED: CYCL10TA2 PO (23:27)
--- NOTE | 2020-11-06 23:27 | RAD ---
Exam: Lumbar spine 3 views INDICATION: Pain TECHNIQUE: Frontal, lateral views lumbar spine with spot magnification view of the lumbosacral juncti on Comparisons: None FINDINGS: Vertebral body heights and alignment are well-maintained. Mild facet arthropathy noted predominantly at the lower lumbar spine. Moderate amount of stool is noted in the colon IMPRESSION: 1. Mild spondylotic changes lumbar spine as described above. 2. Moderate amount of stool in the ascending colon. Electronically signed by: Larisa Carbajal MD (11/06/2020 11:25 PM) RUTH
--- NOTE | 2020-11-06 23:27 | PHYS DOC ---
Past Medical History Past Medical History: Diabetes-Type II, Hypertension Past Surgical History: Tubal ligation Smoking Status: Current Every Day Smoker Alcohol Use: None Drug Use: None General Adult EDM: Chief Complaint: LOWER BACK PAIN OR INJURY HPI: HPI: Patient is a 45 year old female with a history of diabetes type 2, hypertension, who presents to the ED today complaining of 10 out of 10 bilateral low back pain radiating to the left buttock into the left lower extremity, symptoms have been going on since this morning. Patient states symptoms are worse when she is ambulating or turning in certain positions. States symptoms are also worse when she raises the left upper extremity up. Denies any trauma. Denies any pain radiating to bilateral lower extremities, denies any loss of bowel/bladder function. Denies any urinary symptoms. She states she has had similar pain before. Review of Systems: Review of Systems: Constitutional: Denies fever or chills. [] Eyes: Denies change in visual acuity. [] HENT: Denies nasal congestion or sore throat. [] Respiratory: Denies cough or shortness of breath. [] Cardiovascular: Denies chest pain or edema. [] GI: Denies abdominal pain, nausea, vomiting, bloody stools or diarrhea. [] : Denies dysuria. [] Musculoskeletal: Reports low back pain radiating to the left lower extremity Integument: Denies rash. [] Neurologic: Denies headache, focal weakness or sensory changes. [] Psychiatric: Denies depression or anxiety. [] Heart Score: C/O Chest Pain: N/A Risk Factors: Risk Factors: DM, Current or recent (<one month) smoker, HTN, HLP, family history of CAD, obesity. Risk Scores: Score 0 - 3: 2.5% MACE over next 6 weeks - Discharge Home Score 4 - 6: 20.3% MACE over next 6 weeks - Admit for Clinical Observation Score 7 - 10: 72.7% MACE over next 6 weeks - Early Invasive Strategies Current Medications: Current Medications Medications (Trade) Dose Ordered Sig/Edita Start Time Stop Time Status Last Admin Dose Admin Acetaminophen/ Hydrocodone Bitart (Lortab 5/325) 2 tab 1X ONCE 11/06/20 22:00 11/06/20 22:01 DC 11/06/20 22:04 2 TAB Cyclobenzaprine HCl (Flexeril) 10 mg 1X ONCE 11/06/20 22:00 11/06/20 22:01 DC 11/06/20 22:04 10 MG Naproxen (Naprosyn) 500 mg 1X STAT 11/06/20 21:50 11/06/20 21:54 DC 11/06/20 22:05 500 MG Allergies: Allergies: Allergies Coded Allergies Type Severity Reaction Last Updated Verified Penicillins Allergy Intermediate Rash 02/27/20 Yes Physical Exam: PE: Constitutional: Well developed, well nourished, no acute distress, non-toxic appearance. [] HENT: Normocephalic, atraumatic, bilateral external ears normal, oropharynx moist, no oral exudates, nose normal. [] Eyes: PERRLA, EOMI, conjunctiva normal, no discharge. [] Neck: Normal range of motion, no tenderness, supple, no stridor. [] Cardiovascular:Heart rate regular rhythm, no murmur [] Lungs & Thorax: Bilateral breath sounds clear to auscultation [] Abdomen: Bowel sounds normal, soft, no tenderness, no masses, no pulsatile masses. [] Skin: Warm, dry, no erythema, no rash. [] Back: No tenderness, no CVA tenderness. [] Extremities: No tenderness, no cyanosis, no clubbing, ROM intact, no edema. [] Neurologic: Alert and oriented X 3, normal motor function, normal sensory function, no focal deficits noted. [] Psychologic: Affect normal, judgement normal, mood normal. [] Current Patient Data: Vital Signs: Vital Signs Date Time Temp Pulse Resp B/P (MAP) Pulse Ox O2 Delivery O2 Flow Rate FiO2 11/06/20 22:34 18 100 Room Air 11/06/20 22:01 82 157/93 (114) 11/06/20 21:34 98.1 98.1 EKG: EKG: [] Radiology/Procedures: Radiology/Procedures: [] Course & Med Decision Making: Course & Med Decision Making Pertinent Labs and Imaging studies reviewed. (See chart for details) This is a 45-year-old female patient presenting to the ED today with low back pain with sciatica, no known injury, no cauda equina syndrome symptoms. Her blood pressure was 195/95, patient reports history of hypertension, she states she has not taken her medicines for months. Requesting prescription for her medications. Denies any chest pain or shortness of breath. Rx was given for hydrochlorothiazide with instructions to follow-up with the PCP in the next 1 week. Gwen Disclaimer: Gwen Disclaimer: This electronic medical record was generated, in whole or in part, using a voice recognition dictation system. Departure Departure Impression: Primary Impression: Low back pain Qualified Codes: M54.42 - Lumbago with sciatica, left side Additional Impressions: Sciatica of left side Hypertension Qualified Codes: I10 - Essential (primary) hypertension Disposition: HOME / SELF CARE / HOMELESS Condition: STABLE Referrals: UNKNOWN PCP NAME (PCP) Follow-up with your primary care doctor in 1 week Patient Instructions: Back Pain, Adult, Sciatica Additional Instructions: You were seen for low back pain with sciatica. Please take the prescribed medications as needed for pain. Follow-up with your primary care doctor in 1 week. Come back to the ED at any point symptoms worsen Scripts Hydrochlorothiazide (HYDROCHLOROTHIAZIDE TABLET) 12.5 Mg Tablet 12.5 MG PO DAILY for DIURETIC, #30 TAB 0 Refills Prov: TRUNG FRASER APRN 11/06/20 Diclofenac Potassium (DICLOFENAC POTASSIUM) 50 Mg Tablet 1 TAB PO BID, #20 TAB 0 Refills Prov: TRUNG FRASER APRN 11/06/20 Cyclobenzaprine Hcl (CYCLOBENZAPRINE HCL) 10 Mg Tablet 1 TAB PO TID, #30 TAB Prov: TRUNG FRASER APRN 11/06/20 TRUNG FRASER APRN November 06, 2020 23:27
== END 2020-11-06 23:31 | disposition home or self-care (01) ==
LOC: ER 21:25
DX: M54.42 Lumbago with sciatica, left side (principal); I10 Essential (primary) hypertension; E11.9 Type 2 diabetes mellitus without complications; F17.200 Nicotine dependence, unspecified, uncomplicated; Z98.51 Tubal ligation status; Z88.0 Allergy status to penicillin
CPT/HCPCS: 72100; 99284